=== PATIENT | male | born 1990 | race Caucasian/White ===

== ENCOUNTER 2016-06-15 00:01 | Emergency (ER) | payer OTHER ==
[~2016-06-15] VITALS: Ht 180.3 cm; Wt 139.8 kg
[~2016-06-15 00:01] MED LIST: BACTRIM,SEPT1 TABLET PO; FLEXERIL10 MG PO; KEFLEX500 MG PO; NEXIUM40 MG PO; NOHOMEMEDS; PERCOCET 5/31 TABLET PO
[2016-06-15] MEDS ORDERED: MEDROL DOSEPAK4 MG PO (01:21)
[2016-06-15] MEDS ORDERED: VENTOLIN HFA18 GM IH (01:21)
[2016-06-15 01:34] VITALS: BP 144/83
== END 2016-06-15 01:45 | disposition home or self-care (01) ==
LOC: EME 00:01
DX: J45.909 Unspecified asthma, uncomplicated (principal); F17.200 Nicotine dependence, unspecified, uncomplicated
CPT/HCPCS: 94640; 94664; 99281; 99284; J7512